=== PATIENT | male | born 1955 | race Caucasian/White ===

== ENCOUNTER 2018-09-27 09:25 | Emergency (ER) | payer MEDICAID ==
[~2018-09-27] VITALS: Ht 172.7 cm; Wt 72.6 kg
[2018-09-27 09:37] VITALS: BP 176/94
== END 2018-09-27 10:32 | disposition left against medical advice (07) ==
LOC: ER 09:25
DX: R07.89 Other chest pain (principal); Z53.21 Procedure and treatment not carried out due to patient leaving prior to being seen by health care provider
CPT/HCPCS: 71045; 93005